=== PATIENT | male | born 1960 | race Caucasian/White ===

== ENCOUNTER 2025-01-02 14:43 | Emergency (ER) | payer MEDICARE, MEDICAID, SELFPAY ==
[2025-01-02 14:54] VITALS: BP 150/88; PULSE 89; RESP 20; TEMP 36.6; O2SAT 97
--- NOTE | 2025-01-02 15:19 | ED.DENTAL ---
HPI - Dental/Oral General Chief complaint: Dental/Oral Stated complaint: Toothache Time Seen by Provider: 01/02/25 15:05 Source: patient and RN notes reviewed Mode of arrival: ambulatory Limitations: no limitations History of Present Illness HPI Narrative: 64-year-old male patient presents [facility] complaining of left upper dental pain for approximately 3 weeks. Patient has been taking leftover clindamycin without relief. Patient reports worsening pain and swelling to left upper mouth. Patient reports history of dental problems. Patient denies any difficulty swallowing, difficulty breathing, difficulty clearing secretions, fevers or body aches cough chills, or any other symptoms. Related Data Home Medications ?Medication ?Instructions ?Recorded ?Confirmed ?Last Taken ?Type irbesartan 300 mg tablet mg 01/02/25 Unknown History rosuvastatin 40 mg tablet mg 01/02/25 Unknown History Allergies Allergy/AdvReac Type Severity Reaction Status Date / Time No Known Allergies Allergy Verified 01/02/25 14:58 Review of Systems Review of Systems: CONSTITUTIONAL: Denies fever, chills, or sweats. EYES: Denies visual changes, redness, or discharge. ENT: Denies rhinorrhea, congestion, sore throat, dysphagia, difficulty clearing secretions, or otalgia. MOUTH: Positive for dental pain. CARDIOVASCULAR: Denies chest pain, palpitations, or edema. RESPIRATORY: Denies cough or dyspnea. GASTROINTESTINAL: Denies abdominal pain, nausea, vomiting, or diarrhea. GENITOURINARY: Denies dysuria or hematuria. SKIN: Denies rash or itching. MUSCULOSKELETAL: Denies back pain, joint pain, or myalgia. NEUROLOGIC: Denies headache, numbness, or weakness. PSYCHIATRIC: Denies anxiety or depression. All other systems reviewed are negative, except as documented in HPI. PMFSH Comments At the time of my signature, I reviewed and agree with the nursing past medical, surgical, social, and family history. There is no relevant family history pertinent to the patient complaint. Exam Narrative: GENERAL: This is a well-nourished, well-developed adult, in no apparent distress. They are non ill-appearing, nontoxic appearing. HEAD: normocephalic, atraumatic. EYES: Sclera clear/white. Conjunctiva normal. Vision is grossly intact. Extraocular movements intact EARS: External ears normal, Hearing grossly intact. NOSE: External nose normal THROAT: Mucous membranes moist, posterior pharynx clear, without erythema or swelling. Uvula midline. OROPHARYNX: Numerous missing teeth. Gross do decay present. Gingivitis present. Left upper gum is erythematous, tender to palpate. No exudate. Tongue midline. No pain or swelling under the tongue. NECK: Neck supple, non-tender without lymphadenopathy, masses or thyromegaly. CARDIOVASCULAR: Regular rate and rhythm RESPIRATORY: Respiratory rate normal, respiratory effort nonlabored, no respiratory distress SKIN: warm, Dry, intact with no suspicious lesions or rash, good texture and turgor. NEURO: awake, alert, and oriented to person, place and time. There were no obvious focal neurologic abnormalities. EXTREMITIES: No joint tenderness, effusion, or edema noted. BACK: Nontender without deformity. No CVA tenderness. Course Course Emergency Course: Portions of this record may have been created with voice recognition software Level of Care: Express Care Visit Vital Signs Vital signs: Vital Signs Temperature 97.8 F 01/02/25 14:54 Pulse Rate 89 01/02/25 14:54 Respiratory Rate 20 01/02/25 14:54 Blood Pressure 150/88 H 01/02/25 14:54 Pulse Oximetry 97 01/02/25 14:54 Oxygen Delivery Room Air 01/02/25 14:54 Temperature 97.8 F 01/02/25 14:54 Pulse Rate 89 01/02/25 14:54 Respiratory Rate 20 01/02/25 14:54 Blood Pressure 150/88 H 01/02/25 14:54 Pulse Oximetry 97 01/02/25 14:54 Oxygen Delivery Room Air 01/02/25 14:54 Reviewed MDM - Dental/Oral MDM Narrative Medical decision making narrative: Appears patient has a dental abscess. Will treat with Augmentin. Pulse prescribe a course 800 mg ibuprofen. Discussed physical exam findings. Advised supportive measures and signs/symptoms to go to the ER. Pt is appropriate for outpt treatment and f/u. Differential Diagnosis Differential diagnosis: Likely gingival abscess, dental caries, toothache and dental abscess Critical Care Time Critical Care Time Critical Care Time: No Discharge Plan Discharge Clinical Impression: Dental abscess Patient Disposition: Home Condition: Stable Instructions: Antibiotic Form, Dental Abscess (ED) Additional Instructions: Take the antibiotics as directed. Take ibuprofen as directed. You may alternate with Tylenol, follow instructions on the bottle. Honeydew your teeth and floss at least 2 times a day. You may use mouthwash after each brushing as well. Follow-up with dentist next week. If you developed worsening swelling, fevers, difficulty swallowing or breathing, difficulty opening her jaw, swelling under the tongue, or any other concerns please go to the ER immediately. Patient Language: Slovenian Prescriptions: New ibuprofen 800 mg tablet 800 mg PO Q6H PRN (Reason: pain) Qty: 20 0RF amoxicillin-pot clavulanate 875-125 mg tablet 1 tablet PO Q12H 10 Days Qty: 20 0RF No Action irbesartan 300 mg tablet rosuvastatin 40 mg tablet Follow-up/Referrals: PHYSICIAN NOT ON STAFF,NONSTAFF [Primary Care Provider] Time of Disposition: 15:14
--- OUTSIDE RECORDS SUMMARY | 2025-01-02 17:12 | XMS_ITS | Clinical Summary ---
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 other abnormality. IMPRESSION: Infrarenal abdominal aortic aneurysm status post endovascular stenting with paired stents seen extending into the bilateral common iliac arteries and proximal right external iliac artery. The stent is widely patent. The pseudo aneurysmal sac has decreased in size and now measures a maximum of 3.9 cm (previously 4.6 cm). There is no evidence of a endoleak. Cholelithiasis. REFERENCE: Unless otherwise specified, no follow-up imaging is recommended for incidental renal and adrenal lesions per consensus recommendations based on imaging criteria. Further lab evaluation could be pursued based on clinical findings. Management of the Incidental Renal Mass on CT: A White Paper of the ACR Incidental Findings Committee. J Am [place] Radiol. 2018 Apr;15(2):264-273. Management of Incidental Adrenal Masses: A White Paper of the ACR Incidental Findings Committee. J Am [place] Radiol. 2017 Oct;14(8):7331-2362. THIS IS AN ELECTRONICALLY VERIFIED FINAL REPORT 05/27/2022 11:12 AM - Electronically signed by Mark RASHEED T: Report ID: [id number] Reading Location: [id number] Procedure Note Mark Banda MD - 05/27/2022 EXAM DESCRIPTION: CTA ABDOMEN PELVIS REASON FOR STUDY: History of AAA status post repair February 2022 for follow-up. TECHNIQUE: CTA scan of the abdomen and pelvis performed without and with intravenous and without oral contrast using helical scanning techniquewith dynamic intravenous contrast injection. Precontrast, arterial, and portal venous phase images of the abdomen and pelvis were acquired. Images reviewed with lung, soft tissue and bone windows. Reconstructed coronaland sagittal MPR images reviewed. All images stored on PACS. 3D MIP images rendered on scanning unit and reviewed at time of interpretation.Automated exposure control was used as a dose optimization technique for this examination. CONTRAST TYPE/DOSE: 100mL of IOVERSOL 350 MG IODINE/ML INTRAVENOUSSYRINGE injected via intravenous Patient was pre-medicated for contrast. COMPARISON: CT dated October 21, 2021 FINDINGS: VASCULATURE: On the initial non contrasted portion of the examination there is extensive calcified atherosclerosis. No evidence of intramural hematoma. A infrarenal endovascular stent is in place withpaired stents seen extending into the bilateral common and proximal rightexternal iliac artery. On arterial phase imaging the stent is widely patent. The pseudo aneurysmal sac has decreased in size and now measures a maximum of3.9 cm (previously 4.6 cm). On more delayed imaging there is no evidence of a endoleak. No large vessel occlusion. CELIAC TRUNK: No flow limiting stenosis, dissection, or aneurysm. SUPERIOR MESENTERIC ARTERY: No flow limiting stenosis, dissection, or aneurysm. RIGHT RENAL ARTERY: No flow limiting stenosis, dissection, or aneurysm. LEFT RENAL ARTERY: No flow limiting stenosis, dissection, or aneurysm. INFERIOR MESENTERIC ARTERY: Not seen AORTA: No flow limiting stenosis, dissection, or aneurysm. ILIAC ARTERIES: Occlusion of the right internal iliac artery. Thebilateral common and external iliac arteries are patent. LOWER CHEST: No significant pulmonary abnormalities. No effusion. LIVER: Normal size. No identified cystic or solid masses. GALLBLADDER: Multiple stones are seen. No wall thickening or pericholecystic fluid. BILE DUCTS: No intrahepatic or extrahepatic ductal dilatation. SPLEEN: Normal size. No focal lesions. PANCREAS: No identified cystic or solid masses. No significant calcifications. No adjacent inflammation or peripancreatic fluidcollections. Pancreatic duct not dilated. ADRENALS: Normal. KIDNEYS/URINARY TRACT: No identified significant cystic or solid masses.No stones. No hydronephrosis or hydroureter. Symmetric enhancement. Normal bladder. GI: No dilated bowel loops. No obvious wall thickening. Uncomplicated diverticular disease. PERITONEUM: No ascites or free air. RETROPERITONEUM: No mass or adenopathy. REPRODUCTIVE: No significant abnormality. MUSCULOSKELETAL: Postsurgical changes of the lower lumbar spine. OTHER: No other abnormality. IMPRESSION: Infrarenal abdominal aortic aneurysm status post endovascular stentingwith paired stents seen extending into the bilateral common iliac arteries and proximal right external iliac artery. The stent is widely patent. Thepseudo aneurysmal sac has decreased in size and now measures a maximum of 3.9 cm (previously 4.6 cm). There is no evidence of a endoleak. Cholelithiasis. REFERENCE: Unless otherwise specified, no follow-up imaging is recommendedfor incidental renal and adrenal lesions per consensus recommendations basedon imaging criteria. Further lab evaluation could be pursued based onclinical findings. Management of the Incidental Renal Mass on CT: A White Paper of the ACR Incidental Findings Committee. J Am [place] Radiol. 2018 Apr;15(2):264-273. Management of Incidental Adrenal Masses: A White Paper of the ACRIncidental Findings Committee. J Am [place] Radiol. 2017 Oct;14(8):0769-2480. THIS IS AN ELECTRONICALLY VERIFIED FINAL REPORT 05/27/2022 11:12 AM - Electronically signed by Mark RASHEED T: Report ID: [id number] Reading Location: [place] [id number] Al Gutiérrez MD IM CT PROCEDURES Final Res ult * PSA screen (05/03/2021 10:54 AM CREATIVE DEVELOPER) PSA-Total 2.82 <=5.40 ng/mL [facility] ([place]) Comment: Interpretive Data AGE SEX REFERENCE INTERVAL 0 minutes-150 years Female None 0 minutes-49 years Male None 50-59 years Male 0-3.90 60-69 years Male 0-5.40 70-79 years Male 0-6.20 80-150 years Male 0-6.20 Current interpretive data last revised 2018. Testing performed by: [facility], [address] [place] [address], [place]., [address] Blood 05/03/2021 10:5 4 AM CREATIVE DEVELOPER 05/03/2021 10:54 AM CREATIVE DEVELOPER us Amilcar Ingram MD LAB BLOOD ORDERABLES Final R esult [facility] ([place]) [facility] [place] [address] * COLONOSCOPY (08/17/2015) Colonoscopy Normal Comment:[email or web address] Historical Provider HEALTH MAINTENANCE Final Result from Last 3 Months or Most Recently Relevant to Health Maintenance Insurance IDPA HUMANA CHOICE MEDICARE PPO HUMANA CHOICE MEDICARE PPO HUMANA CHOICE MEDICARE PPO IDPA Advance Directives For more information, please contact: [phone] * Full Code (Latest Code Status on File) Date Activated Date Inactivated Comments 01/27/2022 10:47 AM 01/28/2022 6:25 PM * Full Code Date Activated Date Inactivated Comments 03/19/2021 12:57 AM 03/22/2021 12:24 AM Care Teams Air Analysis Technician Relationship Specialty Start Date End Date Amilcar Ingram MD [address] [place] [id number] PCP - General 02/15/20 Vance Lynne MD Surgeon Orthopedic Surgery 11/13/18
--- OUTSIDE RECORDS SUMMARY | 2025-01-02 17:12 | XMS_ITS | Clinical Summary ---
Author Organization [facility] Address [address] [facility], [address] [address] Phone Care Team Providers Care Line Service Person Name Role Phone Rashid Nguyen MD Unavailable [phone] Truman Aguilar DO Unavailable [phone] Amilcar Ingram MD Primary Care Provider [phone] Allergies Active Allergy Reactions Criticality Noted Date Comments Iodinated Contrast Media Hives,Shortness of Breath High 07/05/2015 Other reaction(s): Angioedema Ginkgo Biloba Itching Low 08/23/2015 Latex Rash,Itching Medium 08/28/2015 Tapes, rubber gloves Morphine Anxiety 06/28/2015 Mushroom Extract Complex (Obsolete) Hives Medium 08/23/2015 Poison Jes Extract Unknown 08/24/2015 Propofol Other (see Comments) High 08/28/2015 Chest pain [place] Extract Rash 08/14/2015 Medications aspirin 325 MG Tablet Take 325 mg by mouth daily. Active cyclobenzaprine (FLEXERIL) 10 MG Tablet Take 10 mg by mouth 3 times daily as needed for Muscle spasms. Active losartan (COZAAR) 100 MG Tablet Take 100 mg by mouth daily. Active oxyCODONE-aceta minophen (PERCOCET) 5-325 MG Tablet Take 1-2 Tabs by mouth every 4 hours as needed for Pain. 40 Tab 0 6 Active Additional Information Patient not taking.Reported on 09/12/2015 HYDROmorphone (DILAUDID) 2 MG Tablet Take 1 Tab by mouth every 3 hours as needed. 30 Tab 0 6 Active Additional Information Patient not taking.Reported on 09/12/2015 CRESTOR 20 MG Tablet 6 Active omeprazole (PRILOSEC) 40 MG CAPSULE DELAYED RELEASE Take 1 Cap by mouth daily. 90 Cap 3 6 Active diclofenac (VOLTAREN) 50 MG Tablet Delayed Response Take 1 Tablet by mouth 2 times daily. 30 Tablet 2 Active Active Problems Problem Noted Date Diagnosed Date Umbilical hernia without obstruction and without gangrene 08/23/2015 Current smoker 06/28/2015 Family History Medical History Relation Name Comments Cancer Father unknown Stroke Father Diabetes Maternal Grandmother Stroke Maternal Grandmother Hypertension Mother Cancer Paternal Grandfather Bone Relation Name Status Comments Father Maternal Grandmother Mother Alive Paternal Grandfather Sister Alive Social History Tobacco Use Types Packs/Day Years Used Date Smoking Tobacco: Every Day Cigarettes 1 40 Smokeless Tobacco: Never Tobacco Cessation:Ready to Q uit: Yes; Counseling Given: Yes Alcohol Use Standard Drinks/Week Comments Yes 0 (1 standard drink = 0.6 oz pur e alcohol) rarely Sex and Gender Information Value Date Recorded Sex Assigned at Not on file Legal Sex Male 11:26 PM CDT Gender Identity Not on file Sexual Orientation Not on file Last Filed Vital Signs Vital Sign Reading Time Taken Comments Blood Pressure 127/89 10/19/2021 8:53 PM CDT Pulse 84 10/19/2021 8:53 PM CDT Temperature 36.9 C (98.4 F) 10/19/2021 7:04 PM CDT Respiratory Rate 17 10/19/2021 8:53 PM CDT Oxygen Saturation 98% 10/19/2021 8:53 PM CDT Inhaled Oxygen Concentration - - Weight 112 kg (247 lb) 10/19/2021 7:04 PM CDT Height 182.9 cm (6') 10/19/2021 7:04 PM CDT Body Mass Index 33.5 10/19/2021 7:04 PM CDT Plan of Treatment Health Maintenance Due Date Last Done Comments TdaP Immunization 1960 Cologuard 10/21/2004 Immunochemical Fecal Occult Blood 10/21/2004 Pneumococcal Immunization (5 0+ years) (1 of 1 - PCV) 10/21/2009 Zoster Immunization (1 of 2) 10/21/2009 Medicare Initial AWV [id number] 12/15/2011 Respiratory Syncytial Virus (RSV) Immunization (Adult) (1 - Risk 60-74 years 1-dose series) 2019 Influenza Immunization (#1) 2024 SARS-COV-2 Immunization ( - season) 2024 Colonoscopy 08/16/2025 08/17/2015 Colorectal Cancer Screening 08/16/2025 Lung Cancer Screening Discontinued 08/25/2018 Hepatitis B Immunization Aged Out No longer eligible based on patient's age to complete this topic Human Papillomavirus (HPV) Immunization Aged Out No longer eligible b ased on patient's age to complete this topic Meningococcal Immunization (ACWY) Aged Out No longer eligible based on patient's age to complete this topic Rotavirus Immunization Aged Out No lo nger eligible based on patient's age to complete this topic Procedures Procedure Name Priority Date/Time Associated Diagnosis Comments CT CHEST SCREENING WO Routine 08/25/2018 12:59 PM CDT Tobacco use disorder Encounter for screening for lung cancer History of tobacco use from Last 3 Months or Most Recently Relevant to Health Maintenance Results * CT CHEST SCREENING WO (08/25/2018 12:59 PM CDT) Anatomical Region Laterality Modality Chest N/A Computed Tomogra phy 08/25/2018 1:45 PM CDT Impressions 08/25/2018 1:48 PM CDT IMPRESSION: 1. No suspicious lung nodules. 2. Mild paraseptal emphysema in the upper lobes near the apices, associated with a moderate-sized right apical bleb, and minimal areas of peripheral pleuroparenchymal scarring. 3. Minimal diffuse bronchial wall thickening. In a smoker, this is likely secondary to chronic bronchitis. 4. Other findings as above. Lung-RADS v1.1 category 1: Negative. Recommendation: Continue annual screening LDCT in 12 months. Narrative 08/25/2018 1:48 PM CDT EXAM DESCRIPTION: CT CHEST SCREENING WO REASON FOR STUDY: Screening CT of the chest in a current smoker with a 40 pack year smoking history. Additional history: None. TECHNIQUE: Low dose CT scan of the chest was performed without intravenous contrast using helical scanning technique. The exam extends from the lung apices through the lung bases. Automatic exposure control was used as a dose optimization technique. NOTE: This study was performed for the specific purposes of lung cancer screening and is not an alternative to diagnostic chest CT. RADIATION DOSE: CT dose index volume (CTDIvol) = 2.88 mGy COMPARISON: None available. FINDINGS: SMOKING RELATED LUNG DISEASE: There is mild paraseptal emphysema in the upper lobes near the apices. There is also a moderate-sized bleb at the right lung apex. Minimal areas of peripheral pleuroparenchymal scarring. LUNG NODULES: There are no suspicious lung nodules. OTHER: No evidence of pneumonia. Minimal areas of subsegmental atelectasis in the dependent portions of the lower lobes. The airway is widely patent. Minimal diffuse bronchial wall thickening. No endobronchial lesions identified. There is no pleural effusion. No pneumothorax. No suspicious lymphadenopathy in the chest. Heart size is upper limits of normal. Atherosclerotic calcifications identified in the coronary arteries. No pericardial thickening or effusion. The thoracic aorta is mildly atherosclerotic, but normal in course and caliber. Central pulmonary arteries are mildly prominent. Limited low-dose images through the upper abdomen are unremarkable. Examination of bone windows demonstrates no suspicious lytic or blastic lesions. THIS IS AN ELECTRONICALLY VERIFIED FINAL REPORT 08/25/2018 1:45 PM - Electronically signed by Ramana Mack M.D. RL: KENZIE Report ID: [id number] Reading Location: [id number] Procedure Note Ramana Mack MD - 08/25/2018 EXAM DESCRIPTION: CT CHEST SCREENING WO REASON FOR STUDY: Screening CT of the chest in a current smoker with a 40 pack year smoking history. Additional history: None. TECHNIQUE: Low dose CT scan of the chest was performed without intravenous contrast using helical scanning technique. The exam extends from the lung apices through the lung bases. Automatic exposure control was used as a dose optimization technique. NOTE: This study was performed for the specific purposes of lung cancer screening and is not an alternative to diagnostic chest CT. RADIATION DOSE: CT dose index volume (CTDIvol) = 2.88 mGy COMPARISON: None available. FINDINGS: SMOKING RELATED LUNG DISEASE: There is mild paraseptal emphysema in the upper lobes near the apices. There is also a moderate-sized bleb at the right lung apex. Minimal areas of peripheral pleuroparenchymal scarring. LUNG NODULES: There are no suspicious lung nodules. OTHER: No evidence of pneumonia. Minimal areas of subsegmental atelectasis in the dependent portions of the lower lobes. The airway is widely patent. Minimal diffuse bronchial wall thickening. No endobronchial lesions identified. There is no pleural effusion. No pneumothorax. No suspicious lymphadenopathy in the chest. Heart size is upper limits of normal. Atherosclerotic calcifications identified in the coronary arteries. No pericardial thickening or effusion. The thoracic aorta is mildly atherosclerotic, but normal in course and caliber. Central pulmonary arteries are mildly prominent. Limited low-dose images through the upper abdomen are unremarkable. Examination of bone windows demonstrates no suspicious lytic or blastic lesions. THIS IS AN ELECTRONICALLY VERIFIED FINAL REPORT 08/25/2018 1:45 PM - Electronically signed by Ramana Mack M.D. RL: KENZIE Report ID: [id number] Reading Location: [id number] IMPRESSION: 1. No suspicious lung nodules. 2. Mild paraseptal emphysema in the upper lobes near the apices, associated with a moderate-sized right apical bleb, and minimal areas of peripheral pleuroparenchymal scarring. 3. Minimal diffuse bronchial wall thickening. In a smoker, this is likely secondary to chronic bronchitis. 4. Other findings as above. Lung-RADS v1.1 category 1: Negative. Recommendation: Continue annual screening LDCT in 12 months. Abraham Collado MD [facility] [place]LES Final Result from Last 3 Months or Most Recently Relevant to Health Maintenance Insurance MEDICAID [place] MEDICARE C HUMANA Care Teams Line Service Person Relationship Specialty Start Date End Date Amilcar Ingram MD [address] [place] [id number] PCP - General Internal Medicine 10/19/21 Rashid Nguyen MD General Surgery 09/07/15 Truman Aguilar DO Gastroenterology 10/29/15
== END 2025-01-02 15:21 | disposition home or self-care (01) ==
DX: K04.7 Periapical abscess without sinus (principal); I10 Essential (primary) hypertension; E78.00 Pure hypercholesterolemia, unspecified
CPT/HCPCS: 99203; G0463